=== PATIENT | female | born 1955 | race Caucasian/White ===

== ENCOUNTER 2018-02-22 13:27 | Inpatient (IN) ==
--- NOTE | 2018-02-21 21:54 | Discharge Summary ---
<Jae Thomas - Last Filed: 02/22/18 14:30> Orders not resulted at time of discharge: Pending orders 02/22/18 00:01 XR knee RT 1-2V [XR] Routine H/H [Hemoglobin and Hematocrit] [HEME] Routine 02/22/18 14:27 US anesthesia pain block [US] Routine Date of Encounter: 02/22/18 - Discharge Diagnosis (1) Obesity (BMI 35.0-39.9 without comorbidity) Priority: Secondary Status: Chronic (2) Arthritis of knee, right Priority: Primary Status: Chronic (3) Status post total knee replacement, right Priority: Primary Status: Acute (4) Chronic pain Status: Chronic Qualifiers: Chronic pain type: other chronic pain Qualified Code(s): G89.29 - Other chronic pain (5) HLD (hyperlipidemia) Status: Chronic Qualifiers: Hyperlipidemia type: mixed hyperlipidemia Qualified Code(s): E78.2 - Mixed hyperlipidemia (6) HTN (hypertension) Status: Chronic Qualifiers: Hypertension type: essential hypertension Qualified Code(s): I10 - Essential (primary) hypertension - Hospital Course Hospital course: Ms. Randhawa is a 62 year old female - Time Spent with Patient Total time spent providing and/or coordinating discharge services: - Discharge Medications Prescriptions: Cyclobenzaprine [Flexeril] 5 mg PO BID #30 tablet Home Medications: Aspirin Enteric Coated [Aspirin EC] 325 mg PO BID #20 tablet. 02/21/18 [Rx] OxyCODONE Immed Rel [Roxicodone 5 MG] 5 mg PO Q6HR PRN 7 Days #28 tablet [Rx] BuPROPion XL (24 HR) [Wellbutrin Xl] 150 mg PO DAILY 02/22/18 [History] FLUoxetine HCl [Prozac] 20 mg PO DAILY PRN 02/22/18 [History] Famotidine [Pepcid] 20 mg PO DAILY PRN 02/22/18 [History] Losartan/Hydrochlorothiazide [Losartan-Hctz 50-12.5 mg Tab] 1 tab PO DAILY 02/22 [History] Metoprolol Succinate 50 mg PO DAILY 02/22/18 [History] Multivitamin [One Daily Multivitamin] 1 each PO DAILY 02/22/18 [History] Naproxen [Naprosyn] 500 mg PO BID 02/22/18 [History] [place]-3/Dha/Epa/Fish Oil [Fish Oil 1,000 mg Softgel] 1 each PO DAILY 02/22/18 [ History] Pyridoxine HCl [Vitamin B-6] 100 mg PO DAILY 02/22/18 [History] Simvastatin [Zocor] 40 mg PO DAILY 02/22/18 [History] Cyclobenzaprine [Flexeril] 5 mg PO BID #30 tablet 02/24/18 [Rx] Allergies/Adverse Reactions: 3 Allergy/AdvReac Type Severity Reaction Status Date / Time Iodinated Contrast- Oral and Allergy Rash Verified 02/22/18 14:51 IV Dye lisinopril Allergy Cough Verified 02/22/18 14:51 Primary care physician: Sharan Herron MD - Patient Status Disposition: Home Health Service Condition: Good - Discharge Instructions Follow Up With: Jae Thomas MD [Partnered Physician] - 03/24/18 4:45 pm Jenny Lacy PAC [Physician Farm Reporter] - 03/04/18 9:15 am Sharan Herron MD [Primary Care Provider] - 03/03/18 8:45 am <Jenny Lacy - Last Filed: 02/24/18 15:00> Date of Encounter: 02/24/18 Time of Encounter: 14:54 - Discharge Diagnosis (1) Status post total knee replacement, right Priority: Primary Status: Acute Comments: Opsite dressing, leave intact until first post-operative visit. If dressing becomes >50% saturated, contact office, remove dressing and place appropriate dressing in its place. Do not allow for dressing to get wet. Zipline in place, plan to remove at post-operative day #14-16. Total Joint Precautions x 6 weeks Apply cold therapy wrap 3-6x/day for 20 minutes at a time. Encourage ambulation throughout the day Use Incentive spirometer 10x/hour. Elevate affected extremity above heart as tolerated. Brace: Wear knee immobilizer at night x 2 weeks. (2) Arthritis of knee, right Priority: Primary Status: Chronic (3) Chronic pain Priority: Secondary Status: Chronic Comments: OARRS reviewed: [place] TID 7.5/325 - patient stated she is no longer taking this. Qualifiers: Chronic pain type: other chronic pain Qualified Code(s): G89.29 - Other chronic pain (4) HTN (hypertension) Priority: Secondary Status: Chronic Qualifiers: Hypertension type: essential hypertension Qualified Code(s): I10 - Essential (primary) hypertension (5) HLD (hyperlipidemia) Priority: Secondary Status: Chronic Qualifiers: Hyperlipidemia type: mixed hyperlipidemia Qualified Code(s): E78.2 - Mixed hyperlipidemia (6) Obesity Priority: Secondary Status: Chronic Qualifiers: Obesity type: due to excess calories Obesity classification: unspecified obesity classification Serious obesity comorbidity presence: without serious comorbidity Qualified Code(s): E66.09 - Other obesity due to excess calories (7) Candidiasis of mouth Priority: Secondary Status: Acute Comments: Sent in Nystatin swish and swallow for home x 7 days or until symptoms resolve. - Hospital Course Hospital course: Ms. Randhawa is a 62 year old female status post Right TKR 02/22. Patient had uneventful postoperative course. She does have thrush - ordering home medication. Stable for discharge. Patient seen at bedside, without complaints. A&O x 3 Afebrile, vital signs stable. Vital Signs Temp Pulse Resp BP Pulse Ox 02/24/18 10:18 98.5 F 76 16 153/78 95 02/24/18 06:40 98.7 F 68 16 144/73 93 02/24/18 03:24 98.8 F 72 16 149/71 91 02/23/18 23:47 98.6 F 76 16 154/78 90 02/23/18 19:28 98.7 F 85 16 167/77 92 02/23/18 16:05 98.1 F 84 16 164/82 96 Intake and Output 02/23/18 02/24/18 02/24/18 23:59 07:59 15:59 Output Total 900 / 900 400 / 400 Balance -900 / -900 -400 / -400 Output: Urine 900 / 900 400 / 400 Other: # Voids 1 1 Weight 92 kg Patient Weight 02/24/18 23:59 Weight 92 kg Labs reviewed. H/H - stable, asymptomatic Abnormal Labs, Last 24 hours 02/24/18 02/24/18 02:04 02:04 Hgb 11.0 L Hct 34.0 L Potassium 3.4 L Glucose 124 H Pain control: adequate Participating in PT. All questions and concerns addressed. Educated on use of incentive spirometer. Encouraged ambulation and proper hydration. Patient educated on post-operative restrictions and post-operative care. Assessment and plan: Continue with postoperative care Discharge plan: Home with HH , discharge today - Time Spent with Patient Total time spent providing and/or coordinating discharge services: Date of admission: 02/22/18 Primary care physician: Sharan Herron MD Discharging clinician: Jenny Lacy Anticipated date of discharge: 02/24/18 - Patient Status Functional capacity at discharge: uses cane/walker Overall status at discharge: patient is progressing back to baseline
--- NOTE | 2018-02-22 09:12 | Anesthesia Evaluation PreOp ---
Date of Encounter: 02/22/18 Time of Encounter: 13:53 - Past History Planned Operation: Right Total Knee Arthroplasty Cardiac History: HTN, Hyperlipidemia Pulmonary History: Denies Any Significant HX, Snore CASTING SORTER History: Denies Any Significant HX Other Medical History: GERD, Other (depression) Anesthesia History: No Prior Anesthetic Complications, Past Anesthesia Alcohol Use: none Drug use: none Medications and Allergies Aspirin Enteric Coated [Aspirin EC] 325 mg PO BID #20 tablet. 02/21/18 [Rx] OxyCODONE Immed Rel [Roxicodone 5 MG] 5 mg PO Q6HR PRN 7 Days #28 tablet [Rx] 3 Allergy/AdvReac Type Severity Reaction Status Date / Time Iodinated Contrast- Oral and Allergy Rash Unverified 02/11/18 09:44 IV Dye lisinopril Allergy Cough Unverified 02/11/18 09:44 - Meds/Allergy Pre-op Review Medications Reviewed: Yes Allergies Reviewed: Yes Beta Blockers on Current Med List: Yes If Beta Blockers taken, Date/Time (Last Dose taken): 02/22/2018 at 1200 Anesthesia Results - Labs Laboratory Tests 02/11/18 02/11/18 02/11/18 09:50 09:50 09:50 WBC 6.7 Hgb 13.1 Hct 40.4 Plt Count 348 PT 10.3 INR 0.9 APTT 31.7 Sodium 141 Potassium 4.0 BUN 25 H Creatinine 0.97 - Imaging EKG: report reviewed (02/11/2018 SINUS RHYTHM INCOMPLETE RIGHT BUNDLE BRANCH BLOCK) Anesthesia Exam O2 Sat Height 1.55 m Height 1.55 m Weight 89.811 kg Weight 89.811 kg O2 Sat by Pulse Oximetry 98 Vital Signs Temp Pulse Resp BP Pulse Ox 99.2 F 93 18 176/93 98 02/22/18 13:45 02/22/18 13:45 02/22/18 13:45 02/22/18 13:45 02/22/18 13:45 Height: 5'1'' Weight: 198 lbs NPO (# of Hours): 8 Pain Scale: 0 Pain Scale Used: Numeric (1 - 10) - HEENT Pupil (Motor): EOMI Mallampati: III Teeth: Normal, Prosthesis Oral Opening: Greater than 3 - CASTING SORTER LOC: Oriented CASTING SORTER Motor: Normal RUE, Normal LUE, Normal RLE, Normal LLE, Normal Face CASTING SORTER Sensory: Normal: RUE, LUE, RLE, LLE, Face - Cardiac Rhythm: Regular Murmur: None - Pulmonary Breath Sounds: bilateral Clear Respiratory Effort: Symmetrical Anesthesia Assess/Plan ASA Score: 2 Modified [place] Scale for Level of Consciousness: Cooperative, oriented, and tranquil Anesthetic Plan: Regional (SAB with adductor canal block and IPACK) Monitoring Plan: Standard Monitors Recovery Plan: PACU
[2018-02-22] MEDS ORDERED: *HR* FentaNYL (PF) 100 MCG/2 ML VIAL ONE (13:38)
[2018-02-22] MEDS ORDERED: *HR* Midazolam HCl 2 MG/2 ML VIAL ONE (13:38)
[2018-02-22] MEDS ORDERED: *HR* Propofol 200 MG/20 ML VIAL IVP ONE (13:38)
[2018-02-22] MEDS ORDERED: CeFAZolin Syr 2,000MG/20 ML 2,000 MG/20 ML SYRINGE IVPB ONE (13:48)
[2018-02-22] MEDS ORDERED: Albuterol 2.5 MG/3 ML NEBULIZER IH ONE ×2 (13:48→15:02)
[2018-02-22] MEDS ORDERED: Ringers Solution, Lactated 1,000 ML IVC SCH ×2 (14:00→18:23)
--- NOTE | 2018-02-22 14:28 | History & Physical Report ---
Date of Encounter: 02/22/18 Time of Encounter: 14:28 24 Hour HP Update - Instructions Instructions: If the History and Physical is less than 30 days old and was completed prior to A.M. admission and or procedure and has NOT been updated on calendar day of procedure please complete this update prior to performing procedure. - Update Patient reports changes in Medical Condition: No Changes in examination, assessment, or condition: No Changes in Medication: No Preop tests/diagnostics Reviewed: Yes Surgery Remains Indicated: Yes Consent for Planned Operative Procedure(s) Verified: Yes - Pre-Operative Checklist Preoperative Checklist Indicated: No Prophylactic Antibiotic Ordered: Yes Is VTE Prophylaxis Indicated?: Yes
[2018-02-22] MEDS ORDERED: Lidocaine -MPF 2% 5 ML VIAL ONE (14:50)
[2018-02-22] MEDS ORDERED: ROPIVACAINE HCL/PF 0.5% 30 ML VIAL ONE (14:51)
[2018-02-22] MEDS ORDERED: Morphine Sulfate/PF 5mg/10mL Vial ONE (14:53)
[2018-02-22] MEDS ORDERED: Propofol 500 MG/50 ML INFUS..BTL ONE (14:57)
[2018-02-22] MEDS ORDERED: Ethanol\\Acetic Acid\\Na Ace\\Ben 1,000 ML IRRIG.SOLN IR ONE (14:58)
[2018-02-22] MEDS ORDERED: Acetaminophen IV 1,000 MG/100 ML INFUS..BTL ONE (14:58)
[2018-02-22] MEDS ORDERED: *HR* OxyCODONE Immed Rel 5 MG TABLET PO PRN (15:02)
[2018-02-22] MEDS ORDERED: *HR* Labetalol 20 MG/4 ML SYRINGE IVP PRN (15:02)
[2018-02-22] MEDS ORDERED: *HR* HYDROmorphone 2 MG TABLET PO PRN (15:02)
[2018-02-22] MEDS ORDERED: *HR* Promethazine 25 MG/ML VIAL IVP PRN (15:02)
--- NOTE | 2018-02-22 15:29 | Anesthesia Procedures ---
Date of Encounter: 02/22/18 Time of Encounter: 15:33 Procedures: Anesthesia - Epidural/Spinal Patient ID/Chart reviewed: Yes Patient examined: Yes Consent Obtained: Yes Supplemental Oxygen: Nasal Cannula Supplemental Oxygen Rate (L/min): 2 Sedation: Versed (mg): 2 Sedation: Fentanyl (mcg): 100 Site Prep: Aseptic Technique Patient position: upright Local Anesthetic: Lidocaine 1% Amount of Local Anesthetic used: 3 Touhy Needle Gauge: other (22) Interspace Used: L3-L4 Blood: No CSF: Yes Paresthesia: No Spinal Needle Gauge: 22 Spinal Dose: 2.5 ml .5% marcaine with .2 mg duramorph Vitals + FHT's: see rn notes - Nerve Block Procedure Date: 02/22/18 Time: 15:29 Surgical Procedure: total knee arthroplasty Checklist: Correct Patient Identifier, Correct procedure, History checked Correct side: Right Blood Thinner: No Monitor Applied: EKG, BP, Pulse Oximetry Supplemental Oxygen via Nasal Cannula (L/min): 2 Sedation: Versed (mg): 2 Sedation: Fentanyl (mcg): 100 Indication: Post Op Analgesia Pre-op Neuro Deficits: No Block Type: Other (canal) Catheter placed: No Sterile Technique: Yes Ultrasound used: Yes Anatomy identified: Yes Visual spread of Local: Yes Neuro Stimulation: No Blood on Needle Aspiration: No Smooth Injection of Local: Yes Pain with Injection of Local: No Prep: Chlorhexadine Needle: 21 x 100 mm Stimuplex Local: Ropivacaine Volume (cc): 30 Number of Attempts: 1 Complications: None/effective block
[2018-02-22] MEDS ORDERED: EPHEDrine 50 MG/ML VIAL ONE (15:47)
--- NOTE | 2018-02-22 16:13 | Orthopedic Operative Note ---
Date of procedure: 02/22/18 Pre-op diagnosis: Right knee arthritis Post-op diagnosis: same Procedure: Procedure: Right robotic-assisted Total knee replacement Estimated blood loss: 200 cc Hardware: Metal and polyethylene replacement. [place] Femur: 2 Tibia: 2 TS insert: 13 Patella: 33 Exam Under anesthesia: 5 degrees flexion contracture 8 degree varus as calculated by the robot full flexion and no instability Procedural Notes: Grade 4 arthritic changes all 3 compartments. Operative procedure: The patient was brought to the operating room and placed on the operating room table. After general anesthesia was administered the operative knee was examined. Findings were noted in the exam under anesthesia. The operative extremity was prepped and draped in sterile surgical fashion. The patient received IV antibiotics prior to skin incision. A standard midline incision was made centered over the patella. The incision was made through the skin and subcutaneous tissue. A medial parapatellar tendon approach was performed. Care was taken to preserve tissue along the medial aspect of the patella. And to protect the patella tendon. The deep MCL was released off the medial tibia. The infra patella fat pad was excised. The patella was everted and cut was made at the level of the insertion of the quadriceps and patella tendon. The patella was sized the guide was seated and the lug holes are drilled. Knee was brought into flexion. Patient noted to have grade 4 arthritic changes all 3 compartments. Steinmann pins were placed in the tibia and the femur for the tibial and femoral arrays respectively. Checkpoints were also placed in the tibia and the femur for calculation purposes. The knee including the femur and the tibial registered. Osteophytes, ACL and PCL were excised at this point. Extension and flexion were assessed with a valgus stress components were adjusted on the computer to balance the knee. Femoral cuts were made first with robotic assistance, these included the anterior cut posterior cuts chamfer cuts. Tibial cut was then performed with robotic assistance as well. Bone fragments were removed, as well as the medial and lateral meniscus. The size 2 femoral guide was seated box cut was made lug holes are drilled. The size 2 tibial tray was seated and prepared with the fin cutter. Trial reduction with the 13 TS Aarti revealed extension of 0 degree and 5 degree varus full flexion. No varus valgus instability. Trial reduction revealed excellent patella tracking. All trial components were removed all bony surfaces were irrigated. The Tibia was seated followed by the femur, The selected Aarti size was seated and secured patella. Patient had similar findings for motion and stability. The knee was closed by the PA. The knee was then irrigated out with 2 L of pulse irrigation. The extensor mechanism was closed with #2 FiberWire suture and #2 PDS suture. The subcutaneous tissue was then irrigated and closed deep with #1 PDS suture superficially with 0 PDS suture and skin was closed with zip tie The patient was then placed in a sterile dressing and a postoperative brace extubated and transferred to recovery room in stable condition. Anesthesia: GETA Surgeon: Jae Thomas Was there an assistant professor of dietetics present: No Estimated blood loss (cc): 200 Condition: stable Disposition: PACU
--- NOTE | 2018-02-22 17:21 | Anesthesia Evaluation Post Op ---
Date of Encounter: 02/22/18 Time of Encounter: 17:20 - Vital Signs Vital Signs: Vital Signs/O2 Sat/Glucose, Most Current Temp Pulse Resp BP Pulse Ox 02/22/18 17:16 71 16 151/90 99 02/22/18 17:06 70 18 151/90 99 02/22/18 16:56 64 16 128/73 97 02/22/18 16:46 98.1 F 80 20 121/66 95 02/22/18 15:04 75 16 137/76 97 02/22/18 14:50 73 16 160/91 99 02/22/18 13:45 99.2 F 93 18 176/93 98 - Lungs Lungs: Clear Ascult./Percussion - Airway Airway: Non-obstructed - Cardiovascular Regular Rate, Baseline Rhythm - Mental Status Mental Status: Alert & Oriented, Answers Appropriately - Pain Pain Scale: 0 Pain Scale used: Numeric (1 - 10) - Nausea Vomiting Nausea Vomiting: Not Present - Hydration Hydration: Tolerates oral liquids, Able to void - Discharge PostOp Status: Transfer Patient to floor
[2018-02-22 17:25] LABS: Hematocrit 39.8 % (35.3-44.9); Hemoglobin 12.7 g/dL (11.5-15.4)
[2018-02-22] MEDS ORDERED: *HR* Enoxaparin 30 MG/0.3 ML SYRINGE SQ SCH (18:00)
[2018-02-22] MEDS ORDERED: Ondansetron 4 MG/2 ML VIAL IVP PRN (18:23)
[2018-02-22] MEDS ORDERED: Temazepam 15 MG CAPSULE PO PRN (18:23)
[2018-02-22] MEDS ORDERED: MOM Conc 10 ML UD.LIQ PO PRN (18:23)
[2018-02-22] MEDS ORDERED: Sennosides 8.6 MG TABLET PO PRN (18:23)
[2018-02-22] MEDS ORDERED: Naloxone 0.4 MG/ML INJ IVP PRN (18:23)
[2018-02-22] MEDS ORDERED: traMADol 50 MG TABLET PO PRN (18:23)
[2018-02-22] MEDS: *HR* OxyCODONE Immed Rel 5 MG TABLET PO PRN (22:51)
[2018-02-23] MEDS: *HR* OxyCODONE/APAP 5/325 TABLET PO PRN ×2 (00:24→05:45)
[2018-02-23 01:53] LABS: Hematocrit 37.7 % (35.3-44.9)
[2018-02-23 02:11] LABS: BUN/Creatinine Ratio 21 (6-26); Blood Urea Nitrogen 16 mg/dL (8-23); Carbon Dioxide 25 mEq/L (23-29); Chloride 105 mEq/L (98-107); Glucose 120 mg/dL (70-105); Osmolality,Calculated 292 (280-300); Potassium 3.2 mEq/L (3.5-5.1); Sodium 140 mEq/L (136-145); eGFR For Non-African Americans > 60 (> 60)
[2018-02-23] MEDS: *HR* OxyCODONE Immed Rel 5 MG TABLET PO PRN ×5 (03:31→20:30)
[2018-02-23] MEDS: *HR* Enoxaparin 30 MG/0.3 ML SYRINGE SQ SCH ×2 (05:45→18:34)
--- NOTE | 2018-02-23 06:40 | Orthopedics Progress Note ---
Date of Encounter: 02/23/18 Time of Encounter: 06:40 - Assessment and Plan (1) Obesity (BMI 35.0-39.9 without comorbidity) Current Visit: Yes Status: Chronic (2) Arthritis of knee, right Current Visit: No Status: Chronic (3) Status post total knee replacement, right Current Visit: No Status: Acute (4) Chronic pain Current Visit: No Status: Chronic Qualifiers: Chronic pain type: other chronic pain Qualified Code(s): G89.29 - Other chronic pain (5) HLD (hyperlipidemia) Current Visit: No Status: Chronic Qualifiers: Hyperlipidemia type: mixed hyperlipidemia Qualified Code(s): E78.2 - Mixed hyperlipidemia (6) HTN (hypertension) Current Visit: No Status: Chronic Qualifiers: Hypertension type: essential hypertension Qualified Code(s): I10 - Essential (primary) hypertension Subjective Interval history: Patient was seen this morning doing well without complaints. Afebrile vital signs stable. Operative extremity: Neurovascularly intact Dressing clean dry and intact Calves nontender Assessment and plan: Continue with postoperative care hematocrit 37 Objective Vital signs: Vital Signs Temp Pulse Resp BP Pulse Ox 02/23/18 03:43 98.8 F 86 16 149/76 97 02/23/18 00:18 97.8 F 78 16 131/74 93 02/22/18 20:00 96 02/22/18 19:15 98.0 F 71 16 118/64 96 02/22/18 17:35 97.8 F 70 16 151/66 97 02/22/18 17:26 97.7 F 66 16 151/66 95 02/22/18 17:16 71 16 151/90 99 02/22/18 17:06 70 18 151/90 99 02/22/18 16:56 64 16 128/73 97 02/22/18 16:46 98.1 F 80 20 121/66 95 02/22/18 15:04 75 16 137/76 97 02/22/18 14:50 73 16 160/91 99 02/22/18 13:45 99.2 F 93 18 176/93 98 Intake and Output 02/22/18 02/22/18 02/23/18 15:59 23:59 07:59 Intake Total 340 / 340 1050 / 1050 Output Total 600 / 600 0 / 0 Balance -260 / -260 1050 / 1050 Intake: IV Fluids 100 / 100 100 / 100 Ancef 2,000 MG In 0.9 % Sodium 100 / 100 100 / 100 Chloride 100 ML @ 200 mls/hr IVPB Q8H [facility] Rx#:[id number] Oral 240 / 240 950 / 950 Output: Urine 400 / 400 0 / 0 Estimated Blood Loss 200 / 200 Other: Meal Dinner Percent of Meal Consumed 100% Weight 89.811 kg 91 kg Patient Weight 02/23/18 23:59 Weight 91 kg - Labs CBC & BMP: 02/23/18 01:07 02/23/18 01:07 Labs: Abnormal lab results Potassium 3.2 mEq/L (3.5-5.1) L 02/23/18 01:07 Glucose 120 mg/dL (70-105) H 02/23/18 01:07 Consult Discharge Plan - Plan Referrals: Sharan Herron MD [Primary Care Provider] -
[2018-02-23] MEDS: BuPROPion XL (24 HR) 150 MG TABLET PO SCH (11:39)
[2018-02-23] MEDS: Metoprolol XL (24 HR) Succ 50 MG TAB.ER.24H PO SCH (11:39)
[2018-02-23] MEDS: Losartan/HCTZ 50-12.5 TABLET PO SCH (11:42)
[2018-02-23] MEDS: Pyridoxine (B-6) 50 MG TABLET PO SCH (13:16)
--- NOTE | 2018-02-23 16:28 | Event Note ---
Date of Encounter: 02/23/18 Time of Encounter: 16:26 PCR - POD#1 - Right TKR 02/22 Patient seen at bedside, without complaints. A&O x 3. Nerve block has started to wear off, pain has escalated drastically. She is does take [place] 7.5/325 TID on a long-term basis. She did not want to return to this for pain control, and has been getting Oxycodone. Afebrile, vital signs stable. Labs reviewed. H/H - stable, asymptomatic Hypokalemia 3.2 noted, asympomatic, monitor. Pain control: Added Lidoderm patch, Flexeril 5mg BID scheduled. Participating in PT. All questions and concerns addressed. Educated on use of incentive spirometer. Encouraged ambulation and proper hydration. Patient educated on post-operative restrictions and post-operative care. Assessment and plan: Continue with postoperative care Discharge plan: Home with Thursday AM Short CBC 02/23/18 02/22/18 Range/Units 01:07 17:01 Hgb 12.0 12.7 (11.5-15.4) g/dL Hct 37.7 39.8 (35.3-44.9) % BMP 02/23/18 Range/Units 01:07 Sodium 140 (136-145) mEq/L Potassium 3.2 L (3.5-5.1) mEq/L Chloride 105 (98-107) mEq/L Carbon Dioxide 25 (23-29) mEq/L BUN 16 (8-23) mg/dL Creatinine 0.76 (0.60-1.20) mg/dL Glucose 120 H (70-105) mg/dL Calcium 9.0 (8.6-10.3) mg/dL Vital Signs Temp Pulse Resp BP Pulse Ox 02/23/18 16:05 98.1 F 84 16 164/82 96 02/23/18 09:58 98.3 F 87 16 149/76 95 02/23/18 06:30 98.5 F 84 16 151/78 98 02/23/18 03:43 98.8 F 86 16 149/76 97 02/23/18 00:18 97.8 F 78 16 131/74 93 02/22/18 20:00 96 02/22/18 19:15 98.0 F 71 16 118/64 96 02/22/18 17:35 97.8 F 70 16 151/66 97 02/22/18 17:26 97.7 F 66 16 151/66 95 02/22/18 17:16 71 16 151/90 99 02/22/18 17:06 70 18 151/90 99 02/22/18 16:56 64 16 128/73 97 02/22/18 16:46 98.1 F 80 20 121/66 95 Intake and Output 02/23/18 02/23/18 02/23/18 07:59 15:59 23:59 Intake Total 1050 / 1050 200 / 200 Output Total 0 / 0 Balance 1050 / 1050 200 / 200 Intake: IV Fluids 100 / 100 Ancef 2,000 MG In 0.9 % Sodium 100 / 100 Chloride 100 ML @ 200 mls/hr IVPB Q8H [facility] Rx#:[id number] Oral 950 / 950 200 / 200 Output: Urine 0 / 0 Other: Meal Lunch Percent of Meal Consumed 85% Weight 91 kg Patient Weight 02/23/18 23:59 Weight 91 kg
--- NOTE | 2018-02-23 16:46 | Physician Discharge Referral ---
Home Health/Hosp Referral Info Transfer to: Home Health Provider in Charge Post Discharge: PCP - Diagnosis (1) Status post total knee replacement, right Priority: Primary Status: Acute (2) Arthritis of knee, right Priority: Primary Status: Chronic (3) Chronic pain Status: Chronic (4) HTN (hypertension) Status: Chronic (5) HLD (hyperlipidemia) Status: Chronic (6) Obesity Status: Chronic - Respiratory Orders None Smoking Cessation: Smoking cessation has been advised. For more information, call the [place] Tobacco Quit Line at 0-437-UKLI-NOW. - Diet/Nutrition Diet/Nutrition Orders: Regular - Activity Activity Orders: Up ad zoe, Ambulate, Walker - Services Needed Following services are medically necessary services: Nursing, Home Health Aide, Physical Therapy, Occupational Therapy Home Care Orders: Opsite dressing, leave intact until first post-operative visit. If dressing becomes >50% saturated, contact office, remove dressing and place appropriate dressing in its place. Do not allow for dressing to get wet. Ziplines in place, plan to remove at post-operative day #14-16. Total Joint Precautions x 6 weeks Apply cold therapy wrap 3-6x/day for 20 minutes at a time. Encourage ambulation throughout the day Use Incentive spirometer 10x/hour. Elevate affected extremity above heart as tolerated. Brace: Wear knee immobilizer at night until first post-operative appt. ~ - Transfer Medications Home Medications: Aspirin Enteric Coated [Aspirin EC] 325 mg PO BID #20 tablet. 02/21/18 [Rx] OxyCODONE Immed Rel [Roxicodone 5 MG] 5 mg PO Q6HR PRN 7 Days #28 tablet [Rx] BuPROPion XL (24 HR) [Wellbutrin XL] 150 mg PO DAILY 02/22/18 [History] FLUoxetine HCl [Prozac] 20 mg PO DAILY PRN 02/22/18 [History] Famotidine [Pepcid] 20 mg PO DAILY PRN 02/22/18 [History] Losartan/Hydrochlorothiazide [Losartan-Hctz 50-12.5 mg Tab] 1 tab PO DAILY 02/22 [History] Metoprolol Succinate 50 mg PO DAILY 02/22/18 [History] Multivitamin [One Daily Multivitamin] 1 each PO DAILY 02/22/18 [History] Naproxen [Naprosyn] 500 mg PO BID 02/22/18 [History] [place]-3/Dha/Epa/Fish Oil [Fish Oil 1,000 mg Softgel] 1 each PO DAILY 02/22/18 [ History] Pyridoxine HCl [Vitamin B-6] 100 mg PO DAILY 02/22/18 [History] Simvastatin [Zocor] 40 mg PO DAILY 02/22/18 [History] Allergies/Adverse Reactions: 3 Allergy/AdvReac Type Severity Reaction Status Date / Time Iodinated Contrast- Oral and Allergy Rash Verified 02/22/18 14:51 IV Dye lisinopril Allergy Cough Verified 02/22/18 14:51 Certification: Further, I certify that my clinical findings support that this patient is homebound (i.e. absences from home require considerable and taxing effort and are for medical reasons or jehovah's witness services or infrequently or short duration when for other reasons) because: Homebound Reason: Post-surgery restriction and or conditions limit ability to leave home Attestation: My signature below is to certify that this patient is under my care and that I, or nurse practitioner, or a physician's certified physician assistant working with me, has a face-to -face encounter with this patient.
[2018-02-24] MEDS: *HR* OxyCODONE Immed Rel 5 MG TABLET PO PRN ×4 (02:08→16:19)
[2018-02-24 02:45] LABS: BUN/Creatinine Ratio 15 (6-26); Blood Urea Nitrogen 10 mg/dL (8-23); Calcium 9.2 mg/dL (8.6-10.3); Carbon Dioxide 28 mEq/L (23-29); Chloride 98 mEq/L (98-107); Glucose 124 mg/dL (70-105); Osmolality,Calculated 286 (280-300); Potassium 3.4 mEq/L (3.5-5.1); Sodium 138 mEq/L (136-145); eGFR For Non-African Americans > 60 (> 60)
[2018-02-24] MEDS: *HR* Enoxaparin 30 MG/0.3 ML SYRINGE SQ SCH (06:33)
--- NOTE | 2018-02-24 06:56 | Orthopedics Progress Note ---
Date of Encounter: 02/24/18 Time of Encounter: 06:56 - Assessment and Plan (1) Obesity (BMI 35.0-39.9 without comorbidity) Current Visit: Yes Status: Chronic (2) Arthritis of knee, right Current Visit: No Status: Chronic (3) Status post total knee replacement, right Current Visit: No Status: Acute (4) Chronic pain Current Visit: No Status: Chronic Qualifiers: Chronic pain type: other chronic pain Qualified Code(s): G89.29 - Other chronic pain (5) HLD (hyperlipidemia) Current Visit: No Status: Chronic Qualifiers: Hyperlipidemia type: mixed hyperlipidemia Qualified Code(s): E78.2 - Mixed hyperlipidemia (6) HTN (hypertension) Current Visit: No Status: Chronic Qualifiers: Hypertension type: essential hypertension Qualified Code(s): I10 - Essential (primary) hypertension Subjective Interval history: Patient was seen this morning doing well without complaints. Afebrile vital signs stable. Operative extremity: Neurovascularly intact Dressing clean dry and intact Calves nontender Assessment and plan: Continue with postoperative care hematocrit 34 Objective Vital signs: Vital Signs Temp Pulse Resp BP Pulse Ox 02/24/18 03:24 98.8 F 72 16 149/71 91 02/23/18 23:47 98.6 F 76 16 154/78 90 02/23/18 19:28 98.7 F 85 16 167/77 92 02/23/18 16:05 98.1 F 84 16 164/82 96 02/23/18 09:58 98.3 F 87 16 149/76 95 Intake and Output 02/23/18 02/23/18 02/24/18 15:59 23:59 07:59 Intake Total 440 / 440 Output Total 350 / 350 900 / 900 400 / 400 Balance 90 / 90 -900 / -900 -400 / -400 Intake: Oral 440 / 440 Output: Urine 350 / 350 900 / 900 400 / 400 Other: Meal Lunch Percent of Meal Consumed 85% # Voids 1 1 Weight 92 kg Patient Weight 02/24/18 23:59 Weight 92 kg - Labs CBC & BMP: 02/24/18 02:04 02/24/18 02:04 Labs: Abnormal lab results Hgb 11.0 g/dL (11.5-15.4) L 02/24/18 02:04 Hct 34.0 % (35.3-44.9) L 02/24/18 02:04 Potassium 3.4 mEq/L (3.5-5.1) L 02/24/18 02:04 Glucose 124 mg/dL (70-105) H 02/24/18 02:04 Consult Discharge Plan - Plan Referrals: Sharan Herron MD [Primary Care Provider] -
[2018-02-24] MEDS: Metoprolol XL (24 HR) Succ 50 MG TAB.ER.24H PO SCH (09:23)
[2018-02-24] MEDS: BuPROPion XL (24 HR) 150 MG TABLET PO SCH (09:24)
[2018-02-24] MEDS: Losartan/HCTZ 50-12.5 TABLET PO SCH (09:24)
[2018-02-24] MEDS: Pyridoxine (B-6) 50 MG TABLET PO SCH (09:24)
[2018-02-24] MEDS: Nystatin SUSP 5 ML UD.LIQ PO SCH ×2 (09:24→12:02)
[2018-02-24 11:40] VITALS: BP 153/78
== END 2018-02-24 16:29 | disposition home health service (06) | DRG 470 ==
LOC: SAMDAY 13:27 → 3NENU 17:36
PROVIDERS: ADMIT Orthopaedic Surgery; ATTEND Orthopaedic Surgery